=== PATIENT | female | born 1990 | race Caucasian/White ===

== ENCOUNTER 2020-01-31 12:01 | Emergency (ER) | payer OTHER ==
[2020-01-31] MEDS ORDERED: SODIUM CHLORIDE 0.9% 1,000 ML IV ONE (13:06)
[2020-01-31 13:44] LABS: Basophils % (A) 0 %; Eosinophils # (A) 0.1 k/uL (0-0.7); Eosinophils % (A) 1 %; HCT 37.5 % (34.0-46.0); HGB 12.3 gm/dL (11.4-16.0); Lymphocytes # (A) 1.3 k/uL (1.0-4.8); Lymphocytes % (A) 19 %; MCH 29.9 pg (25.0-35.0); MCHC 32.8 g/dL (31.0-37.0); Mean Platelet Volume 8.8; Monocytes # (A) 0.4 k/uL (0-1.0); Monocytes % (A) 5 %; Neutrophils # (A) 5.3 k/uL (1.3-7.7); Neutrophils % (A) 75 %; Platelet Count 140 k/uL (150-450); RBC 4.12 m/uL (3.80-5.40); RDW 12.8 % (11.5-15.5); WBC 7.1 k/uL (3.8-10.6)
[2020-01-31 13:53] LABS: ALT 11 U/L (4-34); AST 23 U/L (14-36); African American GFR (CKD) >90 (>60 ml/min/1.73 sqM); Albumin 4.2 g/dL (3.5-5.0); Alkaline Phosphatase 52 U/L (38-126); Anion Gap 9 mmol/L; Blood Urea Nitrogen 8 mg/dL (7-17); Calcium 9.3 mg/dL (8.4-10.2); Carbon Dioxide 23 mmol/L (22-30); Chloride 105 mmol/L (98-107); Glucose 83 mg/dL (74-99); Non-African American GFR(CKD) >90 (>60 ml/min/1.73 sqM); Potassium 4.1 mmol/L (3.5-5.1); Sodium 137 mmol/L (137-145); Total Bilirubin 0.6 mg/dL (0.2-1.3)
[2020-01-31 13:57] LABS: Appearance,Urine Cloudy (Clear); Bacteria,Urine Rare /hpf; Bilirubin,Urine Negative (Negative); Blood,Urine Negative (Negative); Color,Urine Yellow; Glucose,Urine (UA) Negative (Negative); Ketones,Urine Negative (Negative); Leukocyte Esterase,Urine Large (Negative); Mucus,Urine Many /hpf; Nitrite,Urine Negative (Negative); Protein,Urine Trace (Negative); RBC,Urine 3 /hpf (0-5); Specific Gravity,Urine 1.023 (1.001-1.035); Squamous Epithelial Cell,Urine 10 /hpf (0-4); Urobilinogen,Urine <2.0 mg/dL (<2.0); WBC,Urine 4 /hpf (0-5)
--- NOTE | 2020-01-31 14:07 | US ---
EXAMINATION TYPE: US OB >= 14 wk fetus DATE OF EXAM: 01/31/2020 COMPARISON: None CLINICAL HISTORY: bleedingspotting for two days TECHNIQUE: Transabdominal (TA) GESTATIONAL AGE / DATING Physician Established: (17 weeks/0 days) EDC: 07/10/2020 Dates by LMP: (17 weeks/0 days) EDC: 07/10/2020 Dates by First Scan: No previous this is first scan Dates by Current Scan: (17 weeks/1 days) EDC: 07/09/2020 Beta HCG (if available): not available SURVEY IUP: Single PLACENTA: Anterior PREVIA: No Previa RAMÓN: 11.0 cm Normal CERVICAL LENGTH (transabdominal: norm > 3.0cm): 3.2 cm BIOMETRY PRESENTATION: Breech BPD: 3.7 cm 17 weeks / 3 days HC: 13.3 cm 16 weeks / 6 days AC: 11.4 cm 17 weeks / 1 days FL: 2.4 cm 17 weeks / 0 days ESTIMATED WEIGHT IN GRAMS: 182 grams ESTIMATED WEIGHT IN LBS/OZ: 0 lbs. 6 oz. WEIGHT PERCENTAGE BASED ON ESTABLISHED DATES: 51.8% HC/AC: 1.2 Normal FL/AC: 20.6 Normal HEART RATE: 142 bpm RHYTHM: Normal Growth according to dates. No previa. IMPRESSION: Viable 17 weeks 0 days with a heart rate of 142 bpm
--- NOTE | 2020-01-31 14:40 | ED ---
General Adult HPI - General Chief complaint: Vaginal Bleeding Stated complaint: Spotting, 17 weeks Time Seen by Provider: 01/31/20 12:47 Source: patient, RN notes reviewed Mode of arrival: ambulatory Limitations: no limitations - History of Present Illness Initial comments: 29-year-old female currently 17 weeks presents to the emergency department for a chief complaint of vaginal bleeding. Patient has had some light vaginal spotting that started 2 nights ago. States that she notices this when she wipes. She has not had any significant abdominal pain or cramping. Patient states that she is here because she is concerned and would like an ultrasound. She denies dysuria. Denies nausea or vomiting.Patient has no other complaints at this time including shortness of breath, chest pain, abdominal pain, nausea or vomiting, headache, or visual changes. - Related Data Allergies Allergy/AdvReac Type Severity Reaction Status Date / Time No Known Allergies Allergy Verified 01/31/20 12:06 Review of Systems ROS Statement: Those systems with pertinent positive or pertinent negative responses have been documented in the HPI. ROS Other: All systems not noted in ROS Statement are negative. Past Medical History Past Medical History: No Reported History History of Any Multi-Drug Resistant Organisms: None Reported Past Surgical History: Orthopedic Surgery Past Psychological History: No Psychological Hx Reported Smoking Status: Never smoker Past Alcohol Use History: None Reported Past Drug Use History: None Reported General Exam Limitations: no limitations General appearance: alert, in no apparent distress Head exam: Present: atraumatic, normocephalic, normal inspection Eye exam: Present: normal appearance, PERRL, EOMI. Absent: scleral icterus, conjunctival injection, periorbital swelling ENT exam: Present: normal exam, mucous membranes moist Neck exam: Present: normal inspection, full ROM. Absent: tenderness, meningismus, lymphadenopathy Respiratory exam: Present: normal lung sounds bilaterally. Absent: respiratory distress, wheezes, rales, rhonchi, stridor Cardiovascular Exam: Present: regular rate, normal rhythm, normal heart sounds. Absent: systolic murmur, diastolic murmur, rubs, gallop, clicks GI/Abdominal exam: Present: soft, normal bowel sounds. Absent: distended, tenderness, guarding, rebound, rigid External exam: Present: normal external exam. Absent: erythema, swelling, lesions, lacerations Speculum exam: Present: normal speculum exam. Absent: erythema, vaginal discharge, cervical discharge, vaginal bleeding (No vaginal bleeding at this time), foreign body, tissue, laceration By manual exam: Present: normal by manual exam. Absent: cervical motion tenderness, adnexal tenderness, adnexal mass, uterine enlargement, uterine tenderness Neurological exam: Present: alert Course Vital Signs 01/31/20 12:04 Temperature 98.3 F Pulse Rate 97 Respiratory 18 Rate Blood Pressure 112/73 O2 Sat by Pulse 100 Oximetry Medical Decision Making - Medical Decision Making Vitals are stable. CBC CMP unremarkable. Urinalysis unremarkable. Contaminated with squamous cells. O+ blood type. Pelvic exam does not reveal any vaginal bleeding at this time. Ultrasound does show a viable 17 weeks 2 days with a heart rate of 142. I did discuss that with bleeding in week diagnosed on miscarriage. I did recommend she follow up with her SENIOR SOFTWARE QA ENGINEER tomorrow. She will return here for any worsening symptoms. - Lab Data Result diagrams: 01/31/20 13:35 01/31/20 13:35 Lab Results 01/31/20 01/31/20 01/31/20 Range/Units 13:30 13:35 13:35 WBC 7.1 (3.8-10.6) k/uL RBC 4.12 (3.80-5.40) m/uL Hgb 12.3 (11.4-16.0) gm/dL Hct 37.5 (34.0-46.0) % MCV 91.0 (80.0-100.0) fL MCH 29.9 (25.0-35.0) pg MCHC 32.8 (31.0-37.0) g/dL RDW 12.8 (11.5-15.5) % Plt Count 140 L (150-450) k/uL Neutrophils % 75 % Lymphocytes % 19 % Monocytes % 5 % Eosinophils % 1 % Basophils % 0 % Neutrophils # 5.3 (1.3-7.7) k/uL Lymphocytes # 1.3 (1.0-4.8) k/uL Monocytes # 0.4 (0-1.0) k/uL Eosinophils # 0.1 (0-0.7) k/uL Basophils # 0.0 (0-0.2) k/uL Sodium (137-145) mmol/L Potassium (3.5-5.1) mmol/L Chloride (98-107) mmol/L Carbon Dioxide (22-30) mmol/L Anion Gap mmol/L BUN (7-17) mg/dL Creatinine (0.52-1.04) mg/dL Est GFR (CKD-EPI)AfAm (>60 ml/min/1.73 sqM) Est GFR (CKD-EPI)NonAf (>60 ml/min/1.73 sqM) Glucose (74-99) mg/dL Calcium (8.4-10.2) mg/dL Total Bilirubin (0.2-1.3) mg/dL AST (14-36) U/L ALT (4-34) U/L Alkaline Phosphatase (38-126) U/L Total Protein (6.3-8.2) g/dL Albumin (3.5-5.0) g/dL Urine Color Yellow Urine Appearance Cloudy H (Clear) Urine pH 6.0 (5.0-8.0) Ur Specific [place] 1.023 (1.001-1.035) Urine Protein Trace H (Negative) Urine Glucose (UA) Negative (Negative) Urine Ketones Negative (Negative) Urine Blood Negative (Negative) Urine Nitrite Negative (Negative) Urine Bilirubin Negative (Negative) Urine Urobilinogen <2.0 (<2.0) mg/dL Ur Leukocyte Esterase Large H (Negative) Urine RBC 3 (0-5) /hpf Urine WBC 4 (0-5) /hpf Ur Squamous Epith Cells 10 H (0-4) /hpf Urine Bacteria Rare H (None) /hpf Urine Mucus Many H (None) /hpf Blood Type O Positive Blood Type Recheck No Previous Record Bld Type Recheck Status [facility] ONLY 01/31/20 Range/Units 13:35 WBC (3.8-10.6) k/uL RBC (3.80-5.40) m/uL Hgb (11.4-16.0) gm/dL Hct (34.0-46.0) % MCV (80.0-100.0) fL MCH (25.0-35.0) pg MCHC (31.0-37.0) g/dL RDW (11.5-15.5) % Plt Count (150-450) k/uL Neutrophils % % Lymphocytes % % Monocytes % % Eosinophils % % Basophils % % Neutrophils # (1.3-7.7) k/uL Lymphocytes # (1.0-4.8) k/uL Monocytes # (0-1.0) k/uL Eosinophils # (0-0.7) k/uL Basophils # (0-0.2) k/uL Sodium 137 (137-145) mmol/L Potassium 4.1 (3.5-5.1) mmol/L Chloride 105 (98-107) mmol/L Carbon Dioxide 23 (22-30) mmol/L Anion Gap 9 mmol/L BUN 8 (7-17) mg/dL Creatinine 0.49 L (0.52-1.04) mg/dL Est GFR (CKD-EPI)AfAm >90 (>60 ml/min/1.73 sqM) Est GFR (CKD-EPI)NonAf >90 (>60 ml/min/1.73 sqM) Glucose 83 (74-99) mg/dL Calcium 9.3 (8.4-10.2) mg/dL Total Bilirubin 0.6 (0.2-1.3) mg/dL AST 23 (14-36) U/L ALT 11 (4-34) U/L Alkaline Phosphatase 52 (38-126) U/L Total Protein 7.0 (6.3-8.2) g/dL Albumin 4.2 (3.5-5.0) g/dL Urine Color Urine Appearance (Clear) Urine pH (5.0-8.0) Ur Specific [place] (1.001-1.035) Urine Protein (Negative) Urine Glucose (UA) (Negative) Urine Ketones (Negative) Urine Blood (Negative) Urine Nitrite (Negative) Urine Bilirubin (Negative) Urine Urobilinogen (<2.0) mg/dL Ur Leukocyte Esterase (Negative) Urine RBC (0-5) /hpf Urine WBC (0-5) /hpf Ur Squamous Epith Cells (0-4) /hpf Urine Bacteria (None) /hpf Urine Mucus (None) /hpf Blood Type Blood Type Recheck Bld Type Recheck Status Disposition Clinical Impression: Vaginal bleeding during Disposition: HOME SELF-CARE Condition: Good Instructions (If sedation given, give patient instructions): Threatened Miscarriage (ED) Additional Instructions: Please follow-up with your SENIOR SOFTWARE QA ENGINEER tomorrow morning. If you have any worsening symptoms such as severe abdominal pain or worsening bleeding return to the emergency room. Is patient prescribed a controlled substance at d/c from ED?: No Referrals: Chuck Chicas MD [REFERRING] - 1-2 days Time of Disposition: 14:39
[2020-01-31 15:14] VITALS: BP 114/70; PULSE 89; RESP 16; TEMP 98
== END 2020-01-31 15:13 | disposition home or self-care (01) ==
LOC: EC 12:01
DX: O20.9 Hemorrhage in early pregnancy, unspecified (principal); Z3A.17 17 weeks gestation of pregnancy
CPT/HCPCS: 36415; 76805; 80053; 81001; 85025; 86900; 86901; 96360; 99284

== ENCOUNTER 2020-06-24 10:39 | Inpatient (IN) | payer OTHER ==
[2020-06-24] MEDS ORDERED: TERBUTALINE 1 MG/ML VIAL SQ PRN (11:03)
[2020-06-24] MEDS ORDERED: LIDOCAINE 0.5% (PF) 5 MG/ML (50 ML SDV) SQ PRN (11:03)
[2020-06-24] MEDS ORDERED: OXYTOCIN 10 UNIT/ML 1 ML VIAL IM PRN (11:03)
[2020-06-24] MEDS ORDERED: CARBOPROST TROMETHAMINE 250 MCG/ML 1 ML AMP IM PRN (11:03)
[2020-06-24] MEDS ORDERED: METHYLERGONOVINE 0.2 MG/ML 1 ML AMP IM PRN (11:03)
[2020-06-24] MEDS ORDERED: OXYTOCIN 30 UNITS/500 ML NS 30 UNIT in SALINE 1 500ML.BAG IV SCH (11:15)
[2020-06-24] MEDS: LACTATED RINGERS 1,000 ML IV SCH ×2 (12:07→14:44)
[2020-06-24 12:23] LABS: Basophils % (A) 0 %; Eosinophils # (A) 0.1 k/uL (0-0.7); Eosinophils % (A) 1 %; HCT 33.4 % (34.0-46.0); HGB 11.5 gm/dL (11.4-16.0); Lymphocytes # (A) 1.8 k/uL (1.0-4.8); Lymphocytes % (A) 17 %; MCH 30.7 pg (25.0-35.0); MCHC 34.4 g/dL (31.0-37.0); MCV 89.2 fL (80.0-100.0); Mean Platelet Volume 9.5; Monocytes # (A) 0.5 k/uL (0-1.0); Monocytes % (A) 5 %; Neutrophils # (A) 8.2 k/uL (1.3-7.7); Neutrophils % (A) 76 %; Platelet Count 128 k/uL (150-450); RBC 3.74 m/uL (3.80-5.40); WBC 10.8 k/uL (3.8-10.6)
[2020-06-24] MEDS ORDERED: BUTORPHANOL 1 MG/ML 1 ML VIAL IV PRN (13:02)
[2020-06-24] MEDS ORDERED: SODIUM CHLORIDE 0.9% 100 ML BAG ONE (14:31)
[2020-06-24] MEDS ORDERED: ROPIVACAINE 5MG/ML 20ML VIAL ONE (14:31)
[2020-06-24] MEDS ORDERED: fentaNYL (PF) 50 MCG/ML 5 ML AMP ONE (14:31)
--- NOTE | 2020-06-24 17:48 | P.HPOB ---
History of Present Illness H&P Date: 06/24/20 Chief Complaint: 36-6/7 weeks, spontaneous rupture of membranes, labor The patient is a 30-year-old 2 para 0010 admitted at 37 and 6/7 weeks as established by last menstrual period and confirmed by second trimester ultrasound. She is admitted with documented spontaneous rupture of membranes for clear fluid and with all signs reassuring, category 1 heart rate tracing. Her has been uncomplicated and group B strep status is negative. Obstetrical history: 2 para 0010 with 1 previous early elective interruption of . Current statistics are listed in history present illness. EDC of 07/10/2020 was established by last menstrual period and confirmed by second trimester ultrasound. Laboratory workup demonstrates a blood type of O+ with a negative antibody screen. Rubella status is immune. The remainder of the laboratory workup was within normal limits. One hour Glucola was normal and group B strep status is negative. Gynecologic history: Unremarkable with no history of any infections to include STDs. Review of Systems Review of systems is confined to history of present illness. Past Medical History Past Medical History: No Reported History History of Any Multi-Drug Resistant Organisms: None Reported Past Surgical History: Orthopedic Surgery Past Anesthesia/Blood Transfusion Reactions: No Reported Reaction Past Psychological History: No Psychological Hx Reported Smoking Status: Never smoker Past Alcohol Use History: None Reported Past Drug Use History: None Reported - Past Family History Father Family Medical History: No Reported History Medications and Allergies Home Medications Medication Instructions Recorded Confirmed Type Pnv,Calcium 72/Iron/Folic Acid 1 tab PO DAILY 06/24/20 06/24/20 History [ Plus Tablet] Allergies Allergy/AdvReac Type Severity Reaction Status Date / Time No Known Allergies Allergy Verified 06/24/20 10:59 Exam Vital Signs Temp Pulse Resp BP 06/24/20 11:38 96.7 F L 103 H 14 123/85 Intake and Output 06/24/20 06/24/20 06/24/20 06:59 14:59 22:59 Other: # Voids 2 Weight 77.111 kg In general, this is a well-developed, well-nourished white female in no acute distress. Her heart has a regular rhythm and rate without murmur. Her lungs are clear to auscultation bilaterally in all west. Her abdomen is gravid, nondistended, has normal active bowel sounds, is soft, nontender, and without any palpable masses aside from the uterine fundus. Her extremities are without any cyanosis, clubbing, or edema and are nontender to palpation bilaterally. Digital cervical examination at this time demonstrates her surgery completely dilated with the vertex in presentation at +1 station. Spontaneous rupture of membranes has been documented. Results Result Diagrams: 06/24/20 12:07 Abnormal Lab Results - Last 24 Hours (Table) 06/24/20 Range/Units 12:07 WBC 10.8 H (3.8-10.6) k/uL RBC 3.74 L (3.80-5.40) m/uL Hct 33.4 L (34.0-46.0) % Plt Count 128 L (150-450) k/uL Neutrophils # 8.2 H (1.3-7.7) k/uL Assessment and Plan (1) Active labor at term Current Visit: Yes Status: Acute Code(s): EQJ8129 - SNOMED Code(s): 72058094 (2) Spontaneous rupture of membranes Current Visit: Yes Status: Acute Code(s): HLA5358 - SNOMED Code(s): 311368538 Plan: The patient has been admitted and managed for active labor. She has had close maternal and surveillance which will be continued through delivery which would be anticipated in the near future. Epidural catheter has been placed for analgesia.
[2020-06-24] MEDS ORDERED: BENZOCAINE/MENTHOL SPRAY 1 GM/SPRAY AEROSOL TOPICAL PRN (19:33)
[2020-06-24] MEDS ORDERED: ACETAMINOPHEN TAB 325 MG TAB PO PRN (19:33)
[2020-06-24] MEDS ORDERED: HYDROCORTISONE 2.5% RECTAL CREAM 30 GM TUBE RECTAL PRN (19:33)
[2020-06-24] MEDS ORDERED: diphenhydrAMINE 50 MG/ML 1 ML VIAL IVP PRN ×2 (19:33)
[2020-06-24] MEDS ORDERED: ZOLPIDEM 5 MG TAB PO PRN (19:33)
[2020-06-24] MEDS ORDERED: HYDROcodone/APAP 7.5-325MG 1 EACH TAB PO PRN (19:33)
[2020-06-24] MEDS ORDERED: HYDROcodone/APAP 5-325MG 1 EACH TAB PO PRN (19:33)
[2020-06-24] MEDS ORDERED: SIMETHICONE 80 MG CHEWABLE PO PRN (19:33)
[2020-06-24] MEDS ORDERED: diphenhydrAMINE 50 MG CAP PO PRN (19:33)
[2020-06-24] MEDS ORDERED: LANOLIN CREAM 5 GM TUBE TOPICAL PRN (19:33)
[2020-06-24] MEDS ORDERED: diphenhydrAMINE 25 MG CAP PO PRN (19:33)
--- NOTE | 2020-06-24 19:38 | P.PROBDLV ---
Vaginal Delivery Note - . Vaginal Delivery Note: The patient is a 30-year-old 2 para 0010 admitted at 37-5/7 weeks by good dating parameters. She is admitted in early active labor with spontaneous rupture of membranes and all signs reassuring. Her has been entirely uncomplicated and group B strep status is negative. On labor and delivery, she made progress to the active phase of labor which time an epidural catheter was placed for analgesia. She continued to make progress through labor with i ntermittent decrease in variability but no category 2 or worse heart rate patterns. She ultimately progressed to complete at which time she had no significant sensation urge to push secondary to her epidural. She was allowed to labor down for approximately 1 hour after which time she began to push. She pushed over the course of approximately 30 minutes to a normal spontaneous vaginal delivery of a viable 7 lbs. 0 oz. baby boy with Apgars of 9 at 1 minute and 9 at 5 minutes delivered in the right occiput anterior position. The nose and mouth were thoroughly suctioned upon delivery of the head and prior to delivery of the shoulders. The placenta was delivered spontaneously, intact, and grossly normal with a grossly normal centrally inserted three-vessel cord. The placenta was noted to be fairly small but otherwise normal. There was a second-degree right labial laceration creating a hole in the right labia minora which was repaired with 3-0 chromic catgut without difficulty. A small first degree laceration was noted at the perineum and was reapproximated with a single [id number] stitch of 3-0 chromic catgut without difficulty. Estimated blood loss for the entire case was approximately 300 mL. There were no complications. All sponge, instrument, and needle counts were correct. Both mother and are resting comfortably in recovery.
[2020-06-24] MEDS ORDERED: OXYTOCIN 20 UNITS/1000 ML NS 1,000 ML IV SCH (19:45)
[2020-06-24] MEDS: SENNOSIDES-DOCUSATE SODIUM 1 EACH TAB PO SCH (20:37)
[2020-06-25] MEDS: IBUPROFEN 600 MG TAB PO PRN ×2 (01:12→11:02)
[2020-06-25 08:00] LABS: Basophils % (A) 0 %; Eosinophils % (A) 0 %; HCT 29.1 % (34.0-46.0); Lymphocytes # (A) 2.5 k/uL (1.0-4.8); Lymphocytes % (A) 18 %; MCHC 31.9 g/dL (31.0-37.0); MCV 91.1 fL (80.0-100.0); Mean Platelet Volume 9.9; Monocytes # (A) 0.9 k/uL (0-1.0); Monocytes % (A) 6 %; Neutrophils # (A) 10.2 k/uL (1.3-7.7); Platelet Count 119 k/uL (150-450); RDW 13.5 % (11.5-15.5); WBC 13.8 k/uL (3.8-10.6)
[2020-06-25 08:08] LABS: HGB 9.3 gm/dL (11.4-16.0)
[2020-06-25] MEDS: SENNOSIDES-DOCUSATE SODIUM 1 EACH TAB PO SCH (08:16)
--- NOTE | 2020-06-25 08:20 | P.DS ---
Providers Date of admission: 06/24/20 10:42 Expected date of discharge: 06/25/20 Attending physician: Angela Cota Primary care physician: Stated None - Discharge Diagnosis(es) (1) Active labor at term Current Visit: Yes Status: Acute (2) Spontaneous rupture of membranes Current Visit: Yes Status: Acute (3) Normal spontaneous vaginal delivery Current Visit: Yes Status: Acute Hospital Course: The patient is a 30-year-old 2 para 0010 admitted at 37-6/7 weeks by good dating parameters. She is admitted with documented spontaneous rupture of membranes in early labor with all signs reassuring. Her was uncomplicated and group B strep status was negative. On labor and delivery, she made progress through the latent phase of labor and had an epidural catheter placed for analgesia. She then continued to progress on her own to complete after which she had no urge to push. She was allowed to labor down for some time and then ultimately pushed to a normal spontaneous vaginal delivery of a viable 7 lbs. 0 oz. baby boy with Apgars of 9 at 1 minute and 9 at 5 minutes. Her course was unremarkable with vital signs remaining stable and her temperature was afebrile throughout. She was deemed stable for discharge on day #1 was discharged home to follow-up in the office in 6 weeks' time routinely. Discharge instructions included calling for any significantly increased bleeding or foul-smelling lochia, significantly increased fever abdominal pain, perineal complaints, breast complaints, or anything else that concerned her. She was additionally instructed to have nothing in the vagina for at least 6 weeks time to include intercourse. She understood her instructions and agrees to follow up as noted above. Discharge medications included continued vitamins as she has opted to breast-feed. She was otherwise to use [id number] analgesic pain medications as needed. Maternal blood type is O+ and rubella status is immune. Procedures: #1. Epidural analgesia #2. Normal spontaneous vaginal delivery #3. Repair of right labial laceration Patient Condition at Discharge: Stable Plan - Discharge Summary New Discharge Prescriptions: No Action Pnv,Calcium 72/Iron/Folic Acid [ Plus Tablet] 1 tab PO DAILY Discharge Medication List Pnv,Calcium 72/Iron/Folic Acid [ Plus Tablet] 1 tab PO DAILY 06/24/20 [History] Follow up Appointment(s)/Referral(s): Angela Cota MD [STAFF PHYSICIAN] - 6 Weeks Discharge Disposition: HOME SELF-CARE
[2020-06-25 15:09] VITALS: BP 97/51; PULSE 68; RESP 16; TEMP 97.7
== END 2020-06-25 19:21 | disposition home or self-care (01) | DRG 807 ==
LOC: FBPOP 10:39 → 4FBP 10:42
PROVIDERS: ADMIT Obstetrics & Gynecology; ATTEND Obstetrics & Gynecology
PROC: 0KQM0ZZ Repair Perineum Muscle, Open Approach (ICD-10-PCS; principal; 2020-06-24)
PROC: 10E0XZZ Delivery of Products of Conception, External Approach (ICD-10-PCS; principal; 2020-06-24)
PROC: 00HU33Z Insertion of Infusion Device into Spinal Canal, Percutaneous Approach (ICD-10-PCS; principal; 2020-06-24)
PROC: 3E0R3BZ Introduction of Anesthetic Agent into Spinal Canal, Percutaneous Approach (ICD-10-PCS; principal; 2020-06-24)
DX: O70.1 Second degree perineal laceration during delivery (principal); Z37.0 Single live birth; Z3A.37 37 weeks gestation of pregnancy; Z98.890 Other specified postprocedural states
CPT/HCPCS: 85025; 86850; 86900; 86901

== ENCOUNTER 2023-08-04 07:50 | Outpatient (CLI) | payer OTHER ==
[2023-08-04 08:41] VITALS: BP 120/69; PULSE 88; RESP 16; TEMP 97.2
--- NOTE | 2023-09-01 11:11 | P.MSEPDOC ---
Presenting Problems - Arrival Data Date of Arrival on Unit: 08/04/23 Time of Arrival on Unit: 07:50 Mode of Transport: Ambulatory - Complaint OB-Reason for Admission/Chief Complaint: Decreased Movement Comment: Patient arrived to triage stating that she did not feel baby move since 0530 this morning when she woke up until arrival in triage. Patient denies leaking of vaginal fluid, no bleeding no sexual intercourse in the past 24 hour, denies trauma. Medical History - Information : 2 Para: 1 Term: 1 : 0 Abortions: Spontaneous or Elective: 0 Number of Living Children: 1 - Gestational Age Gestational Age by STUART (wks/days): 21 Weeks and 1 Days - History Comment: denies Review of Systems - Review of Systems Constitutional: No problems Breast: No problems ENT: No problems Cardiovascular: No problems Respiratory: No problems Gastrointestinal: No problems Genitourinary: No problems Musculoskeletal: No problems Neurological: No problems Skin: No problems Vital Signs - Temperature Temperature: 97.2 F Temperature Source: Temporal Artery Scan - Pulse Pulse Oximetery Pulse Rate: 88 Pulse Assessment Method: Pulse Oximetry - Respirations Respiratory Rate: 16 Oxygen Delivery Method: Room Air O2 Sat by Pulse Oximetry: 100 - Blood Pressure Right Arm Blood Pressure: 120/69 Blood Pressure Mean: 86 Blood Pressure Source: Automatic Cuff Physician Notification - Physician Notified Physician Notified Date: 08/04/23 Physician Notified Time: 08:03 Physician: Nikolay Cardona New Order Received: Yes - Notification Comment Comment: Dishcharge patient keep normal scheduled appt. Maternal Triage Index - Urgent/Priority 2 Urgent Priority 2: Yes Provider Notified: Nikolay Cardona Provider Notified Time: 08:03 Criteria Met for Priority 2: RN reported to DR. Cardona who is on, Dr. Cardona aware of patient complaint, FHR auscultation and movement the RN felt at bedside. Patient discharged, all less than 37 weeks discharge information given. Patient ambulated out of triage with S.O. Disposition - Disposition OB Disposition: Discharge to home Discharge Date: 08/04/23 Discharge Time: 08:10 I agree with the RN Medical Screening Exam: Yes Physician's MSE Comment: I have neither seen nor examined the patient. Case reviewed; plan agreed upon as documented in EMR&OBIX.: Yes Diagnosis: RELATED CONDITIONS, UNSPECIFIED, SECOND TRIMESTER
== END 2023-08-04 08:10 | disposition home or self-care (01) ==
LOC: FBPOP 07:50
PROVIDERS: ATTEND Obstetrics & Gynecology
DX: O36.8120 Decreased fetal movements, second trimester, not applicable or unspecified (principal); Z3A.21 21 weeks gestation of pregnancy; Z79.82 Long term (current) use of aspirin
CPT/HCPCS: 99213

== ENCOUNTER 2023-09-09 18:38 | Emergency (ER) | payer OTHER ==
--- NOTE | 2023-09-09 19:32 | ED ---
Fever HPI - General Chief Complaint: Fever Stated Complaint: Fever, cough Time Seen by Provider: 09/09/23 19:02 Source: patient Mode of arrival: ambulatory Limitations: no limitations - History of Present Illness Initial Comments: 33-year-old A0 otherwise healthy currently 26 weeks female presenting to the ED with a chief complaint of fever. Patient states for the last 2 days has had fever, myalgias, cough. Notes that she was exposed to influenza A. States that she is concerned as she reports she has been taking 1 g of Tylenol every 6-8 hours but has been unable to keep her fever below 100.4. Additionally notes that when her fever spikes she feels decreased movement. Denies abdominal pain or vaginal bleeding. No chest pain or shortness of breath. Nausea or vomiting. No complications with prior . No other complaints. - Related Data Home Medications Medication Instructions Recorded Confirmed Vit No.180/Iron/Folic 1 tab PO DAILY 06/24/20 06/24/20 [ Plus Tablet] Aspirin [[place] Aspirin EC] 81 mg PO 08/04/23 Previous Rx's Medication Instructions Recorded Cephalexin [Keflex] 500 mg PO Q6HR 7 Days #28 cap 09/09/23 Oseltamivir [Tamiflu] 75 mg PO Q12HR 5 Days #10 cap 09/09/23 Allergies Allergy/AdvReac Type Severity Reaction Status Date / Time No Known Allergies Allergy Verified 09/09/23 18:51 Review of Systems ROS Statement: Those systems with pertinent positive or pertinent negative responses have been documented in the HPI. ROS Other: All systems not noted in ROS Statement are negative. Past Medical History Past Medical History: No Reported History History of Any Multi-Drug Resistant Organisms: None Reported Past Surgical History: Orthopedic Surgery Past Anesthesia/Blood Transfusion Reactions: No Reported Reaction Past Psychological History: No Psychological Hx Reported Smoking Status: Never smoker Past Alcohol Use History: None Reported Past Drug Use History: None Reported - Past Family History Father Family Medical History: No Reported History General Exam Limitations: no limitations General appearance: alert, in no apparent distress, other (Nontoxic-appearing) Eye exam: Present: normal appearance Neck exam: Present: normal inspection Respiratory exam: Present: normal lung sounds bilaterally Cardiovascular Exam: Present: normal rhythm, tachycardia GI/Abdominal exam: Present: soft (Gravid. No tenderness to palpation. No rebound or guarding.) Neurological exam: Present: alert, oriented X3 Skin exam: Present: warm, dry Course Vital Signs 09/09/23 09/09/23 09/09/23 18:48 19:30 20:25 Temperature 97.8 F 101.7 F H Pulse Rate 117 H Respiratory 20 18 Rate Blood Pressure 107/70 O2 Sat by Pulse 100 Oximetry - Reevaluation(s) Reevaluation #1: 09/09/23 20:03 heart tones auscultated reported to be in the 160s with no irregularities. Medical Decision Making - Medical Decision Making Was pt. sent in by a medical professional or institution (, PA, LITIGATION MANAGER, urgent care, hospital, or custodial...) When possible be specific @ -No Did you speak to anyone other than the patient for history (EMS, parent, family, police, friend...)? What history was obtained from this source @ -No Did you review nursing and triage notes (agree or disagree)? Why? @ -I reviewed and agree with nursing and triage notes Were old charts reviewed (outside hosp., previous admission, EMS record, old EKG, old radiological studies, urgent care reports/EKG's, custodial records)? Report findings @ -No old charts were reviewed Differential Diagnosis (chest pain, altered mental status, abdominal pain women, abdominal pain men, vaginal bleeding, weakness, fever, dyspnea, syncope, headache, dizziness, GI bleed, back pain, seizure, CVA, palpatations, mental health, musculoskeletal)? @ -Differential Fever: Pneumonia, viral URI, endocarditis, myocarditis, pericarditis, otitis, sinusitis, peritonsillar Abscess, retropharyngeal Abscess, epiglottitis, peritonitis, appendicitis, Stacey cystitis, diverticulitis, hepatitis, colitis, UTI, PID, TOA, pyelonephritis, prostatitis, epididymitis, meningitis, encephalitis, pulmonary embolism, CVA, thyroid storm, pancreatitis, adrenal crisis, cavernous sinus thrombosis, this is not meant to be an all-inclusive list. EKG interpreted by me (3pts min.). @ -As above X-rays interpreted by me (1pt min.). @ -None done CT interpreted by me (1pt min.). @ -None done U/S interpreted by me (1pt. min.). @ -None done What testing was considered but not performed or refused? (CT, X-rays, U/S, labs)? Why? @ -None What meds were considered but not given or refused? Why? @ -None Did you discuss the management of the patient with other professionals (professionals i.e. , PA, LITIGATION MANAGER, lab, RT, psych nurse, executive secretary social welfare, lawyer real estate, teacher, community relations officer, medical case manager)? Give summary @ -No Was smoking cessation discussed for >3mins.? @ -No Was critical care preformed (if so, how long)? @ -No Were there social determinants of health that impacted care today? How? (Homelessness, low income, unemployed, alcoholism, drug addiction, trans portation, low edu. Level, literacy, decrease access to med. care, halfway, rehab)? @ -No Was there de-escalation of care discussed even if they declined (Discuss DNR or withdrawal of care, Hospice)? DNR status @ -No What co-morbidities impacted this encounter? (DM, HTN, Smoking, COPD, CAD, Cancer, CVA, ARF, Chemo, Hep., AIDS, mental health diagnosis, sleep apnea, morbid obesity)? @ -None Was patient admitted / discharged? Hospital course, mention meds given and route, prescriptions, significant lab abnormalities, going to OR and other pertinent info. @ -Discharge 33-year-old female who is currently 26 weeks presents to the ED with a chief complaint of URI symptoms after positive exposure to influenza A. Serology testing here does show positive for influenza A. UA shows asymptomatic bacteriuria. Patient had heart tones auscultated rate of 160s no irregularities. Patient does show a fever here at 101.6 however patient did take a dose of Tylenol at 5 PM. Currently, patient reports being able to tolerate oral intake. Patient appears nontoxic on exam. No complaints of abdominal pain or vaginal bleeding. Patient discharged home with instructions for close follow-up with her T[facility] ESCORT, Dr. Dumont. Advised continuing Tylenol every 6-8 hours and supportive care. Discharged home with prescription for oseltamivir as recommended by ACOG and prescription of Keflex for asymptomatic bacteria. Discussed strict return precautions with patient and her mother who verbalized agreement. Undiagnosed new problem with uncertain prognosis? @ -No Drug Therapy requiring intensive monitoring for toxicity (Heparin, Nitro, Insulin, Cardizem)? @ -No Were any procedures done? @ -No Diagnosis/symptom? @ -Influenza A Acute, or Chronic, or Acute on Chronic? @ -Acute Uncomplicated (without systemic symptoms) or Complicated (systemic symptoms)? @ -Uncomplicated Side effects of treatment? @ -No Exacerbation, Progression, or Severe Exacerbation? @ -No Poses a threat to life or bodily function? How? (Chest pain, [place], [place], pneumonia, PE, COPD, DKA, ARF, appy, cholecystitis, CVA, Diverticulitis, Homicidal, Suicidal, threat to staff... and all critical care pts) @ -No - Lab Data Lab Results 09/09/23 09/09/23 Range/Units 19:36 19:36 Urine Color Yellow Urine Appearance Cloudy H (Clear) Urine pH 6.0 (5.0-8.0) Ur Specific [place] 1.021 (1.001-1.035) Urine Protein Trace H (Negative) Urine Glucose (UA) Negative (Negative) Urine Ketones 3+ H (Negative) Urine Blood Negative (Negative) Urine Nitrite Negative (Negative) Urine Bilirubin Negative (Negative) Urine Urobilinogen <2.0 (<2.0) mg/dL Ur Leukocyte Esterase Moderate H (Negative) Urine RBC 2 (0-5) /hpf Urine WBC 3 (0-5) /hpf Ur Squamous Epith Cells 12 H (0-4) /hpf Urine Bacteria Rare H (None) /hpf Urine Mucus Few H (None) /hpf Influenza Type A (PCR) Detected A (Not Detectd) Influenza Type B (PCR) Not Detected (Not Detectd) RSV (PCR) Not Detected (Not Detectd) SARS-CoV-2 (PCR) Not Detected (Not Detectd) Disposition Clinical Impression: Influenza Disposition: HOME SELF-CARE Condition: Good Additional Instructions: Please return to the Emergency Department if symptoms worsen or any other concerns. Please follow-up with your [facility]. Prescriptions: Cephalexin [Keflex] 500 mg PO Q6HR 7 Days #28 cap Oseltamivir [Tamiflu] 75 mg PO Q12HR 5 Days #10 cap Is patient prescribed a controlled substance at d/c from ED?: No Referrals: Av Wisdom MD [Primary Care Provider] - 1-2 days Time of Disposition: 20:54
[2023-09-09 20:16] LABS: Appearance,Urine Cloudy (Clear); Bacteria,Urine Rare /hpf; Bilirubin,Urine Negative (Negative); Blood,Urine Negative (Negative); Color,Urine Yellow; Glucose,Urine (UA) Negative (Negative); Ketones,Urine 3+ (Negative); Leukocyte Esterase,Urine Moderate (Negative); Mucus,Urine Few /hpf; Nitrite,Urine Negative (Negative); Protein,Urine Trace (Negative); RBC,Urine 2 /hpf (0-5); Specific Gravity,Urine 1.021 (1.001-1.035); Squamous Epithelial Cell,Urine 12 /hpf (0-4); Urobilinogen,Urine <2.0 mg/dL (<2.0); WBC,Urine 3 /hpf (0-5)
[2023-09-09] MEDS: SODIUM CHLORIDE 0.9% 1,000 ML IV ONE (21:22)
[2023-09-09 22:51] VITALS: BP 104/62; PULSE 112; RESP 19
[2023-09-09] MEDS: ACETAMINOPHEN TAB 500 MG TAB PO STA ×2 (23:11→23:12)
[2023-09-10 00:20] VITALS: TEMP 101.8
== END 2023-09-10 00:04 | disposition home or self-care (01) ==
LOC: EC 18:38
DX: O99.512 Diseases of the respiratory system complicating pregnancy, second trimester (principal); J10.1 Influenza due to other identified influenza virus with other respiratory manifestations; Z79.82 Long term (current) use of aspirin; Z20.822 Contact with and (suspected) exposure to COVID-19; Z3A.26 26 weeks gestation of pregnancy
CPT/HCPCS: 81001; 87636; 96360; 99283

== ENCOUNTER 2023-10-01 15:39 | Outpatient (CLI) | payer OTHER ==
[2023-10-01 17:12] VITALS: BP 108/69; PULSE 106; RESP 18; TEMP 97
[2023-10-01 17:58] LABS: Appearance,Urine Clear (Clear); Bilirubin,Urine Negative (Negative); Blood,Urine Negative (Negative); Color,Urine Yellow; Glucose,Urine (UA) Negative (Negative); Ketones,Urine 2+ (Negative); Leukocyte Esterase,Urine Negative (Negative); Nitrite,Urine Negative (Negative); Protein,Urine Negative (Negative); Specific Gravity,Urine 1.025 (1.001-1.035); Urobilinogen,Urine <2.0 mg/dL (<2.0)
--- NOTE | 2023-10-23 20:48 | P.MSEPDOC ---
Presenting Problems - Arrival Data Date of Arrival on Unit: 10/01/23 Time of Arrival on Unit: 15:39 Mode of Transport: Ambulatory - Complaint OB-Reason for Admission/Chief Complaint: Pain Comment: Pt c/o upper abd tighening. Medical History - Information : 2 Para: 1 Term: 1 : 0 Abortions: Spontaneous or Elective: 0 Number of Living Children: 1 - Gestational Age Gestational Age by STUART (wks/days): 29 Weeks and 3 Days Review of Systems - Review of Systems Constitutional: No problems Breast: No problems ENT: No problems Cardiovascular: No problems Respiratory: No problems Gastrointestinal: No problems Genitourinary: No problems Musculoskeletal: No problems Neurological: No problems Skin: No problems Vital Signs - Temperature Temperature: 97.0 F Temperature Source: Temporal Artery Scan - Pulse Pulse Oximetery Pulse Rate: 106 Pulse Assessment Method: Pulse Oximetry - Respirations Respiratory Rate: 18 Oxygen Delivery Method: Room Air O2 Sat by Pulse Oximetry: 100 - Blood Pressure Right Arm Blood Pressure: 108/69 Blood Pressure Mean: 82 Blood Pressure Source: Automatic Cuff Medical Screen Scoring - Assessment - Baby A Baseline FHR: 145 Heart Rate - NICHD Category: Category II (Indeterminate) NST: Reactive Physician Notification - Physician Notified Physician Notified Date: 10/01/23 Physician Notified Time: 18:05 Physician: Vivi Beltran Order Received: Yes (Discharge home with follow up instructions.) Maternal Triage Index - Maternal Triage Index Presenting for scheduled procedure w/no complaint: No - Stat/Priority 1 Stat Priority 1: No - Urgent/Priority 2 Urgent Priority 2: Yes Provider Notified: Nikolay Cardona Provider Notified Time: 16:17 Criteria Met for Priority 2: C/o contractions. Disposition - Disposition OB Disposition: Discharge to home Discharge Date: 10/01/23 Discharge Time: 18:05 I agree with the RN Medical Screening Exam: No Physician's MSE Comment: Inadequate documentation Case reviewed; plan agreed upon as documented in EMR&OBIX.: No Diagnosis: complaint
== END 2023-10-01 18:10 | disposition home or self-care (01) ==
LOC: FBPOP 15:39
PROVIDERS: ATTEND Obstetrics & Gynecology
DX: O26.893 Other specified pregnancy related conditions, third trimester (principal); R10.9 Unspecified abdominal pain; Z3A.29 29 weeks gestation of pregnancy
CPT/HCPCS: 59025; 81003; 82731; 99213

== ENCOUNTER 2023-11-21 22:26 | Inpatient (IN) | payer OTHER ==
[2023-11-21] MEDS ORDERED: METHYLERGONOVINE 0.2 MG/ML 1 ML AMP IM PRN (23:08)
[2023-11-21] MEDS ORDERED: LIDOCAINE 0.5% (PF) 5 MG/ML (50 ML SDV) SQ PRN (23:08)
[2023-11-21] MEDS ORDERED: TERBUTALINE 1 MG/ML VIAL SQ PRN (23:08)
[2023-11-21] MEDS ORDERED: TRANEXAMIC 1,000 MG/100ML-NACL 1,000 MG in EMPTY BAG 1 BAG IV PRN (23:08)
[2023-11-21] MEDS ORDERED: OXYTOCIN 10 UNIT/ML 1 ML VIAL IM PRN (23:08)
[2023-11-21] MEDS ORDERED: miSOPROStoL 200 MCG TAB PO PRN (23:08)
[2023-11-21] MEDS ORDERED: CARBOPROST TROMETHAMINE 250 MCG/ML 1 ML AMP IM PRN (23:08)
[2023-11-21] MEDS: PENICILLIN G POTASSIUM 5,000,000 UNIT in DEXTROSE 5% IN WATER 100 ML IVPB STA (23:43)
[2023-11-21] MEDS: OXYTOCIN 30 UNITS/500 ML NS 30 UNIT in SALINE 1 500ML.BAG IV SCH (23:50)
[2023-11-21] MEDS: LACTATED RINGERS 1,000 ML IV SCH (23:51)
[2023-11-21 23:53] LABS: Basophils % (A) 0 %; Eosinophils # (A) 0.1 k/uL (0-0.7); Eosinophils % (A) 1 %; HCT 34.6 % (34.0-46.0); HGB 11.4 gm/dL (11.4-16.0); Lymphocytes # (A) 2.4 k/uL (1.0-4.8); Lymphocytes % (A) 21 %; MCH 29.7 pg (25.0-35.0); MCV 89.9 fL (80.0-100.0); Mean Platelet Volume 10.2; Monocytes # (A) 0.7 k/uL (0-1.0); Monocytes % (A) 6 %; Neutrophils # (A) 8.4 k/uL (1.3-7.7); Neutrophils % (A) 71 %; Platelet Count 152 k/uL (150-450); RBC 3.85 m/uL (3.80-5.40); WBC 11.8 k/uL (3.8-10.6)
[2023-11-22] MEDS ORDERED: SODIUM CHLORIDE 0.9% 250 ML BAG ONE (04:16)
[2023-11-22] MEDS ORDERED: ROPIVACAINE 5 MG/ML 30 ML VIAL ONE (04:16)
[2023-11-22] MEDS ORDERED: fentaNYL (PF) 50 MCG/ML 5 ML AMP ONE (04:16)
[2023-11-22] MEDS: PENICILLIN G POTASSIUM 2,500,000 UNIT in DEXTROSE 5% IN WATER 100 ML IVPB SCH (04:52)
[2023-11-22] MEDS: AMPICILLIN 1,000 MG in SODIUM CHLORIDE 0.9% 50 ML IVPB SCH (09:10)
[2023-11-22] MEDS ORDERED: diphenhydrAMINE 50 MG CAP PO PRN (10:21)
[2023-11-22] MEDS ORDERED: BENZOCAINE/MENTHOL SPRAY 1 GM/SPRAY AEROSOL TOPICAL PRN (10:21)
[2023-11-22] MEDS ORDERED: diphenhydrAMINE 25 MG CAP PO PRN (10:21)
[2023-11-22] MEDS ORDERED: SIMETHICONE 80 MG CHEWABLE PO PRN (10:21)
[2023-11-22] MEDS ORDERED: HYDROCORTISONE 2.5% RECTAL CREAM 30 GM TUBE RECTAL PRN (10:21)
[2023-11-22] MEDS ORDERED: HYDROcodone/APAP 7.5-325MG 1 EACH TAB PO PRN (10:21)
[2023-11-22] MEDS ORDERED: LANOLIN CREAM 1 GM TUBE TOPICAL PRN (10:21)
[2023-11-22] MEDS ORDERED: HYDROcodone/APAP 5-325MG 1 EACH TAB PO PRN (10:21)
[2023-11-22] MEDS ORDERED: ZOLPIDEM 5 MG TAB PO PRN (10:21)
[2023-11-22] MEDS ORDERED: diphenhydrAMINE 50 MG/ML 1 ML VIAL IVP PRN ×2 (10:21)
[2023-11-22] MEDS ORDERED: ACETAMINOPHEN TAB 325 MG TAB PO PRN (10:21)
--- NOTE | 2023-11-22 10:27 | P.HPOB ---
History of Present Illness H&P Date: 11/22/23 Chief Complaint: 36-5/7 weeks, documented spontaneous rupture of membranes The patient is a 33-year-old 3 para 1-0-1-1 admitted at 36-5/7 weeks as established by last menstrual period and confirmed by 8-week ultrasound. She is admitted complaining of possible rupture of membranes which is confirmed with AmniSure testing. She is also found to be in early labor. There are some question as to whether or not she has been leaking for approximately 24 to 48 hours. Group B strep cultures had just been taken on the day of presentation in the office and are not available. Her was otherwise entirely uncomplicated though on the day of presentation she additionally had an ultrasound demonstrating fairly significant polyhydramnios. On labor and delivery, all signs are reassuring with a category 1 heart rate tracing. As noted above, group B strep status is undetermined. Obstetrical history: 3 para 1-0-1-1 with 1 term vaginal delivery and 1 early loss. Current statistics are listed in history of present illness. EDC of 12/10/2020 was established by last menstrual period and confirmed by 8-week ultrasound. Laboratory workup demonstrates a blood type of O+ with a negative antibody screen. Rubella status is immune. The remainder of the laboratory workup was within normal limits. 1 hour Glucola was normal and group B strep status is undetermined. Gynecologic history: Unremarkable with no history of any infections to include STDs. Review of Systems Review of systems is confined to history of present illness. Past Medical History Past Medical History: No Reported History History of Any Multi-Drug Resistant Organisms: None Reported Past Surgical History: Orthopedic Surgery Past Anesthesia/Blood Transfusion Reactions: No Reported Reaction Past Psychological History: No Psychological Hx Reported Smoking Status: Never smoker Past Alcohol Use History: None Reported Past Drug Use History: None Reported - Past Family History Father Family Medical History: No Reported History Medications and Allergies Home Medications Medication Instructions Recorded Confirmed Type Vit No.180/Iron/Folic 1 tab PO DAILY 06/24/20 11/21/23 History [ Plus Tablet] Aspirin [[place] Aspirin EC] 81 mg PO DAILY 08/04/23 11/21/23 History Allergies Allergy/AdvReac Type Severity Reaction Status Date / Time No Known Allergies Allergy Verified 11/21/23 22:34 Exam Vital Signs Temp Pulse Resp BP Pulse Ox 11/21/23 23:08 98.1 F 77 18 129/81 97 11/21/23 22:30 97.7 F 89 16 118/75 98 Intake and Output 11/21/23 11/22/23 11/22/23 22:59 06:59 14:59 Other: # Voids 3 Weight 76.204 kg 76.204 kg In general, this is a well-developed, well-nourished white female in no acute distress. Her heart has a regular rhythm and rate without murmur. Her lungs are clear to auscultation bilaterally in all west. Her abdomen is gravid, nondistended, has normal active bowel sounds, soft, nontender, and without any palpable masses aside from uterine fundus. Her extremities are without any cyanosis, clubbing, or edema and are nontender to palpation bilaterally. Digital cervical examination at her presentation demonstrated her cervix to be approximately 3 cm dilated, 50% effaced, with a vertex and presentation at -2 station. Spontaneous rupture of membranes is confirmed with AmniSure. Results Result Diagrams: 11/21/23 23:40 Abnormal Lab Results - Last 24 Hours (Table) 11/21/23 Range/Units 23:40 WBC 11.8 H (3.8-10.6) k/uL Neutrophils # 8.4 H (1.3-7.7) k/uL Assessment and Plan (1) labor Current Visit: Yes Status: Acute Code(s): O60.00 - LABOR WITHOUT DELIVERY, UNSPECIFIED TRIMESTER SNOMED Code(s): 5372734 (2) premature rupture of membranes Current Visit: Yes Status: Acute Code(s): O42.919 - PRETRM [place] ROM, UNSP TIME BETW RUPT AND ONST LABR, UNSP TRI SNOMED Code(s): 469608741 Plan: The patient will have Pitocin augmentation started directly as the length of rupture is unclear. She additionally will have antibiotic prophylaxis started for unknown group B strep status. She will have close maternal and surveillance and expectant management will be practiced. She is a good candidate for either IV, epidural, or nitrous analgesia, whichever she may choose.
--- NOTE | 2023-11-22 10:29 | P.PROBDLV ---
Vaginal Delivery Note - . Vaginal Delivery Note: The patient is a 33-year-old 3 para 1-0-1-1 admitted at 36-5/7 weeks with documented spontaneous rupture of membranes for clear fluid. Her has been uncomplicated aside from a diagnosis of polyhydramnios diagnosed on the day of presentation. Group B strep status has not yet been determined. There is some concern that rupture of membranes may have been ongoing for 24 to 48 hours prior to presentation as she was complaining of intermittent potential leaking versus urinary leakage. As a result, she had both Pitocin augmentation and antibiotic prophylaxis started immediately. heart tones were reassuring with a category 1 heart rate tracing. She made progress through the latent phase of labor and had an epidural catheter placed for analgesia. She then progressed fairly slowly through the active phase of labor and ultimately had amniotic membranes noted in front of the cervix at approximately 7 cm of dilation which were then ruptured artificially. She then made fairly steady progress to complete and pushed over the course of approximately 1-2 contractions to a normal spontaneous vaginal delivery of a viable 7 pound 1 ounce baby girl with Apgars of 8 at 1 minute and 9 at 5 minutes delivered in the right occiput anterior position. The placenta was delivered spontaneously, intact, and grossly normal with a grossly normal, roughly centrally inserted three-vessel cord. There were no lacerations of the perineum, vagina, or cervix. Estimated blood loss for the case was 100 mL or less. There were no complications. Both mother and are resting comfortably in recovery.
[2023-11-22] MEDS ORDERED: OXYTOCIN 30 UNITS/500 ML NS 30 UNIT in SALINE 1 500ML.BAG IV SCH (10:30)
[2023-11-22] MEDS: SENNOSIDES-DOCUSATE SODIUM 1 EACH TAB PO SCH (19:56)
[2023-11-22] MEDS: IBUPROFEN 600 MG TAB PO PRN (19:56)
[2023-11-23 06:22] LABS: Basophils % (A) 0 %; Eosinophils # (A) 0.1 k/uL (0-0.7); Eosinophils % (A) 1 %; HCT 31.8 % (34.0-46.0); HGB 10.5 gm/dL (11.4-16.0); Lymphocytes # (A) 2.4 k/uL (1.0-4.8); Lymphocytes % (A) 27 %; MCH 29.7 pg (25.0-35.0); MCHC 32.8 g/dL (31.0-37.0); MCV 90.5 fL (80.0-100.0); Mean Platelet Volume 10.9; Monocytes # (A) 0.6 k/uL (0-1.0); Monocytes % (A) 7 %; Neutrophils # (A) 5.8 k/uL (1.3-7.7); Neutrophils % (A) 64 %; Platelet Count 116 k/uL (150-450); RBC 3.52 m/uL (3.80-5.40); RDW 14.4 % (11.5-15.5); WBC 9.2 k/uL (3.8-10.6)
--- NOTE | 2023-11-23 09:17 | P.PNOBGVD ---
Subjective - Subjective Principal diagnosis: Status post normal vaginal delivery day #1 Interval history: Patient seen and examined. Denies nausea, vomiting, chest pain, shortness of breath or calf pain. Patient reports: Reports appetite normal, Reports voiding normally, Reports pain well controlled, Reports ambulating normally [place]: doing well Objective - Latest Vital Signs Latest vital signs: Vital Signs Temp Pulse Resp BP Pulse Ox 11/23/23 08:00 98.1 F 91 18 109/72 97 11/23/23 00:00 98.3 F 73 18 111/76 99 11/22/23 20:00 98 F 65 18 110/76 97 11/22/23 15:20 97.4 F L 99 16 110/72 11/22/23 12:00 97.2 F L 101 H 16 119/67 11/22/23 11:44 80 16 110/56 11/22/23 11:30 86 16 100/53 11/22/23 11:15 88 16 110/62 11/22/23 11:00 92 16 113/58 11/22/23 10:45 97.4 F L 90 16 112/95 11/22/23 10:30 95 16 116/76 11/22/23 10:15 97 16 120/67 Intake and Output 11/22/23 11/23/23 11/23/23 22:59 06:59 14:59 Other: Voiding Method Toilet # Voids 1 1 1 - Exam Lungs: bilateral: normal Chest: Normal S1, Normal S2 Extremities: Present: normal Abdomen: Present: normal appearance, soft Uterus: Present: normal, firm - Labs Labs: Abnormal Lab Results - Last 24 Hours (Table) 11/23/23 Range/Units 05:52 RBC 3.52 L (3.80-5.40) m/uL Hgb 10.5 L (11.4-16.0) gm/dL Hct 31.8 L (34.0-46.0) % Plt Count 116 L (150-450) k/uL Assessment and Plan (1) Status post normal vaginal delivery Current Visit: Yes Status: Acute Code(s): DBG9412 - SNOMED Code(s): 399071235 Plan: 1. Continue care. 2. Patient would like to stay 1 more day since her baby does have to stay for observation as delivery was at 36 weeks and 6 days.
[2023-11-23 17:35] VITALS: RESP 16
[2023-11-24 09:15] VITALS: BP 112/76; PULSE 80; TEMP 97.7
--- NOTE | 2023-11-24 11:16 | P.DS ---
Providers Date of admission: 11/21/23 22:55 Expected date of discharge: 11/24/23 Attending physician: Nikolay Cardona Primary care physician: Stated None - Discharge Diagnosis(es) (1) Status post normal vaginal delivery Current Visit: Yes Status: Acute Hospital Course: Patient presented with spontaneous rupture of membranes and in labor. She underwent a normal vaginal delivery at 36 weeks and 6 days. course has been uneventful. She denies nausea, vomiting, chest pain, shortness of breath or calf pain.Patient will be discharged home day #2 in stable condition to follow-up with Dr. Cardona in 6 weeks. Plan - Discharge Summary New Discharge Prescriptions: New Ibuprofen [Motrin] 600 mg PO Q6HR PRN #30 tab PRN Reason: Mild Pain (Scale 1 To 3) No Action Vit No.180/Iron/Folic [ Plus Tablet] 1 tab PO DAILY Aspirin [[place] Aspirin EC] 81 mg PO DAILY Discharge Medication List Vit No.180/Iron/Folic [ Plus Tablet] 1 tab PO DAILY 06/24/20 [History] Aspirin [[place] Aspirin EC] 81 mg PO DAILY 08/04/23 [History] Ibuprofen [Motrin] 600 mg PO Q6HR PRN #30 tab 11/24/23 [Rx] Follow up Appointment(s)/Referral(s): Nikolay Cardona MD [STAFF PHYSICIAN] - 6 Weeks Discharge Disposition: HOME SELF-CARE
== END 2023-11-24 12:15 | disposition home or self-care (01) | DRG 805 ==
LOC: FBPOP 22:26 → 4FBP 22:55
PROVIDERS: ADMIT Obstetrics & Gynecology; ATTEND Obstetrics & Gynecology
PROC: 10907ZC Drainage of Amniotic Fluid, Therapeutic from Products of Conception, Via Natural or Artificial Opening (ICD-10-PCS; principal; 2023-11-22)
PROC: 10E0XZZ Delivery of Products of Conception, External Approach (ICD-10-PCS; principal; 2023-11-22)
DX: O42.913 Preterm premature rupture of membranes, unspecified as to length of time between rupture and onset of labor, third trimester (principal); O60.14X0 Preterm labor third trimester with preterm delivery third trimester, not applicable or unspecified; O40.3XX0 Polyhydramnios, third trimester, not applicable or unspecified; O99.824 Streptococcus B carrier state complicating childbirth; Z79.82 Long term (current) use of aspirin; Z3A.36 36 weeks gestation of pregnancy; Z37.0 Single live birth
CPT/HCPCS: 59025; 84112; 85025; 86850; 86900; 86901; 99213